=== PATIENT | male | born 2005 | race Caucasian/White ===

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

== ENCOUNTER 2025-04-15 10:32 | Emergency (ER) | payer OTHER, SELFPAY ==
[2025-04-15 10:44] VITALS: BP 114/67; PULSE 85; RESP 18; TEMP 36.9; O2SAT 100
--- NOTE | 2025-04-15 10:50 | ED.NAVMDI ---
HPI - Nausea/Vomiting/Diarrhea General Chief complaint: Nausea/Vomiting/Diarrhea Stated complaint: puking Time Seen by Provider: 04/15/25 10:34 Source: patient Mode of arrival: ambulatory Limitations: no limitations History of Present Illness HPI Narrative: Niall is a 20-year-old male patient presenting to the clinic today with complaints of upper abdominal cramping, nausea, and vomiting he reports this is been going on for the past 2 days. No vomiting today but is still having some abdominal discomfort did not feel well this morning. He did call off to work so he is requesting a work note. States he has a history of GERD but is not currently taking any medications. Denies any pain after eating. Last bowel blew it this morning and normal for the patient. Denies any blood in his stool. Denies any blood in his emesis. No fevers, chills, body aches. Related Data Allergies Allergy/AdvReac Type Severity Reaction Status Date / Time No Known Allergies Allergy Verified 04/15/25 10:35 Review of Systems Review of Systems: Pertinent positives per HPI. Patient denies any fever, chills, rash, headache, visual changes, dizziness, cough, runny nose, sore throat, shortness of breath, chest pain, palpitations, diarrhea, constipation, or any urinary issues. [facility] Family History Family History Grandparent Diabetes mellitus Family history of Parkinson's disease Family history of chronic obstructive pulmonary disease Family history of dementia Family history of congestive heart failure Mother Family history of mental disorder Social History Social History Smoking status: Never smoker Alcohol intake: never Comments At the time of my signature, I reviewed and agree with the nursing past medical, surgical, social, and family history. There is no relevant family history pertinent to the patient complaint. Course Course Emergency Course: Portions of this record may have been created with voice recognition software. Level of Care: Express Care Visit Vital Signs Vital signs: Vital Signs Temperature 36.9 C 04/15/25 10:44 Pulse Rate 85 04/15/25 10:44 Respiratory Rate 18 04/15/25 10:44 Blood Pressure 114/67 04/15/25 10:44 Pulse Oximetry 100 04/15/25 10:44 Oxygen Delivery Room Air 04/15/25 10:44 Temperature 36.9 C 04/15/25 10:44 Pulse Rate 85 04/15/25 10:44 Respiratory Rate 18 04/15/25 10:44 Blood Pressure 114/67 04/15/25 10:44 Pulse Oximetry 100 04/15/25 10:44 Oxygen Delivery Room Air 04/15/25 10:44 Vital signs reviewed MDM - Nausea/Vomiting/Diarrhea MDM Narrative Medical decision making narrative: At the time of visit patient is resting comfortably on the exam table. Patient appears to be nontoxic. complaints of upper abdominal cramping, nausea, and vomiting he reports this is been going on for the past 2 days. No vomiting today but is still having some abdominal discomfort did not feel well this morning. He did call off to work so he is requesting a work note. States he has a history of GERD but is not currently taking any medications. Denies any pain after eating. Last bowel blew it this morning and normal for the patient. Denies any blood in his stool. Denies any blood in his emesis. No fevers, chills, body aches. On exam patient has epigastric tenderness to palpation, bowel sounds present all 4 quadrants, soft and pliable abdomen, no CVAT tenderness. No vomiting while in the clinic today. Vital signs are stable Plan: I suspect patient has gastritis/epigastric pain. Prescription for Pepcid and Zofran was sent to the pharmacy. Work note was given. Supportive measures were discussed with the patient and they voiced understanding discharge instructions and agrees to treatment plan. Return precautions reviewed Differential Diagnosis Differential diagnosis: Likely food poisoning, gastroenteritis, drug-induced nausea and vomiting, dehydration and other (Epigastric pain, GERD, peptic ulcer, pancreatitis, cholecystitis) Discharge Plan Discharge Clinical Impression: Acute epigastric pain Gastritis Qualifiers: Gastritis type: unspecified gastritis Chronicity: acute Gastritis bleeding: without bleeding Qualified Code(s): K29.00 - Acute gastritis without bleeding Patient Disposition: Home Condition: Stable Instructions: Antibiotic Form, Gastritis (ED), Epigastric Pain (ED) Additional Instructions: Increase fluids and stay well hydrated-ondansetron and Pepcid Avoid eating spicy or fatty foods, chocolate, or drinking caffeine. Avoid foods that cause you to feel bloated. Stop smoking Stay upright for at least 30 minutes after eating. May use tums for immediate relief Follow up with your PCP in 3-5 days if symptoms persist. Patient Language: Uzbek Prescriptions: New ondansetron 8 mg tablet,disintegrating 8 mg PO Q8H PRN (Reason: nausea and vomiting) 3 Days Qty: 10 0RF famotidine [Pepcid] 40 mg tablet 40 mg PO DAILY 30 Days Qty: 30 0RF Follow-up/Referrals: UNKNOWN,DOCTOR [Primary Care Provider] Stand Alone Forms: Work/School Release IP Time of Disposition: 10:56 Quality NIHSS Nursing Documentation ED NIHSS nursing documentation: reviewed/agree
--- OUTSIDE RECORDS SUMMARY | 2025-04-15 11:10 | XMS_ITS | Encounter Summary ---
Author Organization [facility] Address [address] [place] [address] Phone Care Team Providers Care Confidential Secretary Name Role Phone Sirena Phan MD Primary Care Provider [phone] Sirena Phan MD Primary Care Provider [phone] No, Physician Primary Care Provider [phone] Miscellaneous, Not In File Primary Care Provider Unavailable Encounter Details Date Type Department Care Team (Late st Contact Info) Description 01/21/2017 Orders Only [facility] [address] [place] [address] Sirena Phan MD [address] [address] Elbow injury, right, initial encounter (Primary Dx) Social History Tobacco Use Types Packs/Day Years Used Date Smoking Tobacco: Never Assessed Sex and Gender Information Value Date Recorded Sex Assigned at Not on file 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 There is prominence of the epiphyseal plate of the olecranon process. This may represent Salter I type fracture. There is subtle angulation of the cortex of the lateral femoral condyle region on the oblique image. No obvious joint effusion is seen. SUMMARY: 1. Possible Salter I type fracture of the epiphysis of the olecranon process. 2. Questionable nondisplaced fracture of the lateral humeral condyle region. Conservative treatment of the elbow with repeat imaging in 2-weeks is suggested to document callus formation from possible fractures. Procedure Note Adam Lamar MD - 01/23/2017 DIGITAL RIGHT ELBOW: Soft tissue swelling of the posterior and medial elbow regions. There isprominence of the epiphyseal plate of the olecranon process. This mayrepresent Salter I type fracture. There is subtle angulation of the cortexof the lateral femoral condyle region on the oblique image. No obviousjoint effusion is seen. SUMMARY: 1. Possible Salter I type fracture of the epiphysis of the olecranonprocess. 2. Questionable nondisplaced fracture of the lateral humeral condyleregion. Conservative treatment of the elbow with repeat imaging in 2-weeks is suggested to document callus formation from possiblefractures. Sirena Phan MD IMG XR PROCEDURES Final Resu lt documented in this encounter Visit Diagnoses Diagnosis Elbow injury, right, initial encounter- Primary Elbow injury, right, initial encounter documented in this encounter Additional Health Concerns Infection Onset Date Last Indicated Resolved Time COVID: Suspected 04/09/2021 04/09/2021 04/09/2021 11:43 AM CDT COVID: Suspected 12/10/2023 12/10/2023 12/10/2023 1:08 PM CDT documented as of this encounter Care Teams Confidential Secretary Relationship Specialty Start Date End Date Sirena Phan MD [address] [place] [address] PCP - General 01/07/13 03/19/17 Sirena Phan MD [address] [place] [address] PCP - General 03/20/17 12/22/17 No, Physician PCP - General 12/23/17 06/02/19 Miscellaneous, Not In File PCP - General 06/03/19 documented as of this encounter
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
--- OUTSIDE RECORDS SUMMARY | 2025-04-15 11:10 | XMS_ITS | Clinical Summary ---
Author Organization [facility] Address [address] [place] [address] Care Team Providers Care Program Associate Name Role Phone Sirena Phan MD Primary Care Provider [phone] Source Comments [facility],non-owned Affiliates and Associated Physician Practices is amultiple site organization consisting of ambulatory clinics and hospital sitesin [place], [place], [place] and [place]. This disclosure is being madepursuant to the Care Everywhere program and may not contain all information available regarding this patient. Last updated 18.[facility] Allergies No known active allergies Medications * Be aware that medications may not be up to date on this document. Alwaysverify current medications with the patient. No known medications Immunizations Immunization Administration Dates Next Due MENINGOCOCCAL ACWY (MCV4P) VAC IM 03/08/2017 TDAP (7yrs+) 03/08/2017 Family History Medical History Relation Name Comments Hyperlipidemia Father Hypertension Father Relation Name Status Comments Father Social History Tobacco Use Types Packs/Day Years Used Date Smoking Tobacco: Never Smokeless Tobacco: Never Tobacco Cessation:Counseling Given: Yes Sex and Gender Information Value Date Recorded Sex Assigned at Not on file Legal Sex Male 3:30 PM CDT Gender Identity Not on file Sexual Orientation Not on file Last Filed Vital Signs Vital Sign Reading Time Taken Comments Blood Pressure 112/64 03/02/2020 2:14 PM CDT Pulse 78 03/02/2020 2:14 PM CDT Temperature 36.9 C (98.4 F) 03/02/2020 2:14 PM CDT Respiratory Rate 16 03/02/2020 2:14 PM CDT Oxygen Saturation 98% 03/02/2020 2:14 PM CDT Inhaled Oxygen Concentration - - Weight 49.4 kg (109 lb) 03/02/2020 2:14 PM CDT Height 166.4 cm (5' 5.5) 03/02/2020 2:14 PM CDT Body Mass Index 17.86 03/02/2020 2:14 PM CDT Plan of Treatment Health Maintenance Due Date Last Done Comments HIV SCREENING 2020 HPV VACCINE (1 - Male 3-dose series) 2020 MENINGOCOCCAL (Group B) VACC INE SHARED DECISION-MAKING (1 of 2 - Standard) 2021 HEPATITIS C SCREENING 04/02/2023 HEPATITIS B VACCINE (1 of 3 - 19+ 3-dose series) 2024 DEPRESSION SCREENING 07/29/2024 COVID-19 VACCINE (1 - 2023-2 5 season) 2025 INFLUENZA VACCINE (#1) 2025 04/27/2014 DTAP/TDAP/TD VACCINES (2 - T d or Tdap) 03/08/2027 03/08/2017 ZOSTER VACCINE (1 of 2) 2055 MENINGOCOCCAL GROUPS A/C/Y/W VACCINE Aged Out 03/08/2017 No longer eligible b ased on patient's age to complete this topic HIB VACCINE Aged Out No longer eligi ble based on patient's age to complete this topic PNEUMOCOCCAL VACCINE Aged Out No long er eligible based on patient's age to complete this topic Insurance [employer] SELF PAY NO INSURANCE Member Subscriber Plan / Payer (Ef fective for All Dates) Name:Niall Raymond Relation to Subscriber:Child Name:NELSON RAYMOND Date of :1974 (Home) Address: [address] [place] [id number] Payer ID:Not on file Group ID:Not on file Type:Self Pay Address: [place], [place] Care Teams Program Associate Relationship Specialty Start Date End Date Sirena Phan MD [address] [place] [id number] PCP - General Pediatrics 03/08/17
== END 2025-04-15 11:04 | disposition home or self-care (01) ==
PROVIDERS: Emergency Provider Nurse Practitioner Family
DX: R10.13 Epigastric pain (principal); K29.00 Acute gastritis without bleeding; K21.9 Gastro-esophageal reflux disease without esophagitis
CPT/HCPCS: 99213; G0463